=== PATIENT | male | born 1950 | race American Indian/Alaskan Native ===

== ENCOUNTER 2019-12-03 20:49 | Emergency (ER) | payer SELFPAY ==
[2019-12-04 04:34] LABS: Basophils % (Auto) 0.3 % (0.0-1.8); Eosinophils % (Auto) 0.3 % (0.0-4.3); Hematocrit 44.8 % (35.5-45.6); Hemoglobin 14.7 gm/dl (11.8-15.2); Lymphocytes # (Auto) 2.5 K/mm3 (1.2-5.4); Lymphocytes % (Auto) 27.7 % (13.4-35.0); Mean Corpuscular HGB Conc 33 % (32-34); Mean Corpuscular Volume 87 fl (84-94); Monocytes # (Auto) 0.6 K/mm3 (0.0-0.8); Monocytes % (Auto) 6.3 % (0.0-7.3); Red Blood Count 5.14 M/mm3 (3.65-5.03); Red Cell Distribution Width 13.9 % (13.2-15.2)
[2019-12-04 04:40] LABS: BUN/Creatinine Ratio 11; Blood Urea Nitrogen 11 mg/dL (9-20); Calcium 10.5 mg/dL (8.4-10.2); Hemolysis Index 9
[2019-12-04 04:41] LABS: Platelet Count 191 K/mm3 (140-440)
[2019-12-04] MEDS ORDERED: SODIUM CHLORIDE 0.9% 1000 ML 1,000 ML IV ONE (07:49)
[2019-12-04] MEDS ORDERED: DIPHtheria,PERTUSSIS(ACELL),TETANUS VACCINE/PF 0.5 ML VIAL IM ONE (08:01)
--- NOTE | 2019-12-04 08:39 | XRay Report ---
LUMBAR SPINE 4 VIEWS INDICATION / CLINICAL INFORMATION: fall w/ etoh. COMPARISON: None available. FINDINGS: Mild degenerative changes. No fracture or subluxation. Signer Name: Jorge Alberto Christianson MD Signed: 12/04/2019 8:35 AM Workstation Name: [id number]
--- NOTE | 2019-12-04 08:43 | XRay Report ---
THORACIC SPINE 4 VIEWS INDICATION / CLINICAL INFORMATION: fall with etoh. COMPARISON: None available. FINDINGS: Mild degenerative changes. T1 is not optimally seen on the lateral views but is normal on AP views. I see no fracture, subluxation or other acute abnormality. Signer Name: oJrge Alberto Christianson MD Signed: 12/04/2019 8:39 AM Workstation Name: [id number]
--- NOTE | 2019-12-04 08:53 | Emergency Department Report ---
ED Alcohol HPI - General Chief Complaint: Alcohol Stated Complaint: ETOH Time Seen by Provider: 12/04/19 07:40 Source: patient Mode of arrival: Ambulatory Limitations: No Limitations - History of Present Illness Initial Comments: This is a 69-year-old male brought by EMS nontoxic, well nourished in appearance, no acute signs of distress presents to the ED with c/o of alcohol intoxication that occurred last night. Patient that he had several alcoholic drinks and smoked marijuana last night. Patient does present with some facial abrasions with headache and neck pain. Patient that he believes he tripped and fell. Patient otherwise denies any other complaints. Patient is alert and oriented x3. Patient denies loss of consciousness, head trauma, ecchymosis, chest pain, short of breath, blurry vision, fever, chills, stiff neck, decreased range of motion, bladder or bowel instability, diaphoresis, nausea, vomiting, abdominal pain, joint pain or swelling, visual changes, chest wall tenderness, numbness or tingling sensation extremity. Patient agrees to good rectal tone with no bladder overflow. Patient is currently ambulatory with no assistance. Patient denies any allergies or significant past medical history. Patient denies any suicidal or homicidal ideation. Denies any visual auditory hallucinations. MD Complaint: alcohol intoxication Time Since Last Drink: 1 -: days(s) Associated Symptoms: denies other symptoms. denies: nausea, vomiting, syncope, seizure, diaphoresis, tremors, abdominal pain, hematemesis, melena, depression, suicidality Treatments Prior to Arrival: none - Related Data Allergies Allergy/AdvReac Type Severity Reaction Status Date / Time No Known Allergies Allergy Unverified 12/04/19 03:26 ED Review of Systems ROS: Stated complaint: ETOH Other details as noted in HPI Constitutional: denies: chills, fever Eyes: denies: eye pain, eye discharge, vision change ENT: denies: ear pain, throat pain Respiratory: denies: cough, shortness of breath, wheezing Cardiovascular: denies: chest pain, palpitations Endocrine: no symptoms reported Gastrointestinal: denies: abdominal pain, nausea, diarrhea Genitourinary: denies: urgency, dysuria Musculoskeletal: denies: back pain, joint swelling, arthralgia Skin: denies: rash, lesions Neurological: headache. denies: weakness, paresthesias Psychiatric: denies: anxiety, depression Hematological/Lymphatic: denies: easy bleeding, easy bruising ED Past Medical Hx - Past Medical History Previous Medical History?: Yes Hx Hypertension: Yes - Surgical History Past Surgical History?: No - Social History Smoking Status: Current Every Day Smoker Substance Use Type: Alcohol, Marijuana ED Physical Exam - General Limitations: No Limitations General appearance: alert, in no apparent distress - Head Head exam: Present: atraumatic, normocephalic - Expanded Head Exam Expanded Head exam: Present: abrasion 1 - abrasion noted here - Eye Eye exam: Present: normal appearance, PERRL, EOMI - Neck Neck exam: Present: normal inspection, full ROM. Absent: tenderness, meningismus, lymphadenopathy - Respiratory Respiratory exam: Present: normal lung sounds bilaterally. Absent: respiratory distress, wheezes, rales, rhonchi, stridor, chest wall tenderness, accessory muscle use, decreased breath sounds, prolonged expiratory - Cardiovascular Cardiovascular Exam: Present: regular rate, normal rhythm, normal heart sounds. Absent: tachycardia, irregular rhythm, systolic murmur, diastolic murmur, rubs, gallop - GI/Abdominal GI/Abdominal exam: Present: soft, normal bowel sounds. Absent: distended, tenderness, guarding, rebound, rigid, diminished bowel sounds - Extremities Exam Extremities exam: Present: normal inspection, full ROM, normal capillary refill. Absent: tenderness, joint swelling - Back Exam Back exam: Present: normal inspection, full ROM, paraspinal tenderness (cervical and thoacic paraspinal area). Absent: tenderness, CVA tenderness (R), CVA tende rness (L), muscle spasm, vertebral tenderness, rash noted - Expanded Back Exam Expanded Back exam: Absent: saddle anesthesia Back exam: Negative Straight Leg Raising: Left, Right - Neurological Exam Neurological exam: Present: alert, oriented X3, normal gait - Expanded Neurological Exam Expanded Patient oriented to: Present: person, place, time Cranial nerves: EOM's Intact: Normal, Facial Sensation: Normal Cerebellar function: Finger to Nose: Normal Upper motor neuron: Pronator Drift: Normal, Sensory Extinction: Normal Motor strength exam: GREG: 5, LUE: 5, RLE: 5, LLE: 5 Best Eye Response (Adwoa): (4) open spontaneously Best Motor Response (Edwards): (6) obeys commands Best Verbal Response (Edwards): (5) oriented Edwards Total: 15 - Psychiatric Psychiatric exam: Present: normal affect, normal mood - Skin Skin exam: Present: warm, dry, intact, normal color. Absent: rash ED Course Vital Signs 12/03/19 21:19 Temperature 97.7 F Pulse Rate 53 L Respiratory 12 Rate Blood Pressure 135/70 O2 Sat by Pulse 97 Oximetry - Reevaluation(s) Reevaluation #1: 12/04/19 08:53 Patient is speaking in full sentences with no signs of distress noted. ED Medical Decision Making - Lab Data Result diagrams: 12/04/19 03:34 12/04/19 03:34 Lab Results 12/04/19 12/04/19 12/04/19 Range/Units 03:34 03:34 03:34 WBC (4.5-11.0) K/mm3 RBC (3.65-5.03) M/mm3 Hgb (11.8-15.2) gm/dl Hct (35.5-45.6) % MCV (84-94) fl MCH (28-32) pg MCHC (32-34) % RDW (13.2-15.2) % Plt Count (140-440) K/mm3 Lymph % (Auto) (13.4-35.0) % Barnwell % (Auto) (0.0-7.3) % Eos % (Auto) (0.0-4.3) % Baso % (Auto) (0.0-1.8) % Lymph # (Auto) (1.2-5.4) K/mm3 Barnwell # (Auto) (0.0-0.8) K/mm3 Eos # (Auto) (0.0-0.4) K/mm3 Baso # (Auto) (0.0-0.1) K/mm3 Seg Neutrophils % (40.0-70.0) % Seg Neutrophils # (1.8-7.7) K/mm3 Sodium 135 L (137-145) mmol/L Potassium 4.6 (3.6-5.0) mmol/L Chloride 91.6 L (98-107) mmol/L Carbon Dioxide 25 (22-30) mmol/L Anion Gap 23 mmol/L BUN 11 (9-20) mg/dL Creatinine 1.0 (0.8-1.3) mg/dL Estimated GFR > 60 ml/min BUN/Creatinine Ratio 11 % Glucose 103 H (75-100) mg/dL Calcium 10.5 H (8.4-10.2) mg/dL Salicylates < 0.3 L (2.8-20.0) mg/dL Acetaminophen 5.0 L (10.0-30.0) ug/mL Plasma/Serum Alcohol (0-0.07) % 12/04/19 12/04/19 12/04/19 Range/Units 03:34 03:34 08:54 WBC 8.9 (4.5-11.0) K/mm3 RBC 5.14 H (3.65-5.03) M/mm3 Hgb 14.7 (11.8-15.2) gm/dl Hct 44.8 (35.5-45.6) % MCV 87 (84-94) fl MCH 29 (28-32) pg MCHC 33 (32-34) % RDW 13.9 (13.2-15.2) % Plt Count 191 (140-440) K/mm3 Lymph % (Auto) 27.7 (13.4-35.0) % Barnwell % (Auto) 6.3 (0.0-7.3) % Eos % (Auto) 0.3 (0.0-4.3) % Baso % (Auto) 0.3 (0.0-1.8) % Lymph # (Auto) 2.5 (1.2-5.4) K/mm3 Barnwell # (Auto) 0.6 (0.0-0.8) K/mm3 Eos # (Auto) 0.0 (0.0-0.4) K/mm3 Baso # (Auto) 0.0 (0.0-0.1) K/mm3 Seg Neutrophils % 65.4 (40.0-70.0) % Seg Neutrophils # 5.8 (1.8-7.7) K/mm3 Sodium (137-145) mmol/L Potassium (3.6-5.0) mmol/L Chloride (98-107) mmol/L Carbon Dioxide (22-30) mmol/L Anion Gap mmol/L BUN (9-20) mg/dL Creatinine (0.8-1.3) mg/dL Estimated GFR ml/min BUN/Creatinine Ratio % Glucose (75-100) mg/dL Calcium (8.4-10.2) mg/dL Salicylates (2.8-20.0) mg/dL Acetaminophen (10.0-30.0) ug/mL Plasma/Serum Alcohol 0.10 H 0.01 (0-0.07) % - Radiology Data Referring Physician: JOSEF MADRID Patient Name: CLARITZA ESCOBEDO Date of : 1950 Sex: Male Report Date: 2019-12-04 Report Status: Finalized [address] [address] XRay Report Signed Patient: CLARITZA ESCOBEDO MR#: [id number] : 1950 Acct:[id number] Age/Sex: 69 / M ADM Date: 12/03/19 Loc: ED Attending Dr: Ordering Physician: JOSEF MADRID NP Date of Service: 12/04/19 Procedure(s): XR spine thoracic 2V Accession Number(s): [id number] cc: JOSEF MADRID NP Fluoro Time In Minutes: THORACIC SPINE 4 VIEWS INDICATION / CLINICAL INFORMATION: fall with etoh. COMPARISON: None available. FINDINGS: Mild degenerative changes. T1 is not optimally seen on the lateral views but is normal on AP views. I see no fracture, subluxation or other acute abnormality. Signer Name: Jorge Alberto Christianson MD Signed: 12/04/2019 8:39 AM Workstation Name: [id number] Transcribed By: TM Dictated By: Jorge Alberto Christianson MD Electronically Authenticated By: Jorge Alberto Christianson MD Signed Date/Time: 12/04/19838 DD/ 7 TD/TT: Referring Physician: JOSEF MADRID Patient Name: CLARITZA ESCOBEDO Date of : 1950 Sex: Male Report Date: 2019-12-04 Report Status: Finalized [address] [address] Cat Scan Report Signed Patient: CLARITZA ESCOBEDO MR#: [id number] : 1950 Acct:[id number] Age/Sex: 69 / M ADM Date: 12/03/19 Loc: ED Attending Dr: Ordering Physician: JOSEF MADRID NP Date of Service: 12/04/19 Procedure(s): CT head/brain wo con Accession Number(s): [id number] cc: JOSEF MADRID NP NONENHANCED CT SCAN OF THE HEAD: INDICATION / CLINICAL INFORMATION: 69 years Male; fall w/ etoh. TECHNIQUE: Routine CT head without contrast. All CT scans at this location are performed using CT dose reduction for ALARA by means of automated exposure control. COMPARISON: None. FINDINGS: BRAIN / INTRACRANIAL CONTENTS: No intracranial sequela from the trauma; no scalp hematoma; no air-fluid level in the visualized portions of the paranasal sinuses. No acute hemorrhage, mass effect, midline shift, hydrocephalus, or acute, large territorial infarct. No chronic infarct or focal atrophy. Normal brain volume and ventricular/sulcal size for age. No significant white matter abnormality. CRANIOCERVICAL JUNCTION: No significant abnormality. ORBITS: No significant abnormality of visualized orbits. SINUSES / MASTOIDS: No significant abnormality of the visualized paranasal sinuses or mastoid air cells. ADDITIONAL FINDINGS: None. IMPRESSION: Normal nonenhanced CT scan of the brain Signer Name: Gabbi Fairchild MD Signed: 12/04/2019 9:05 AM Workstation Name: [id number] Transcribed By: BS Dictated By: Gabbi Land MD Electronically Authenticated By: Gabbi Land MD Signed Date/Time: 12/04/19904 DD/ 9 TD/TT: Referring Physician: JOSEF MADRID Patient Name: CLARITZA ESCOBEDO Date of : 1950 Sex: Male Report Date: 2019-12-04 Report Status: Finalized [address] [address] Cat Scan Report Signed Patient: CLARITZA ESCOBEDO MR#: [id number] : 1950 Acct:[id number] Age/Sex: 69 / M ADM Date: 12/03/19 Loc: ED Attending Dr: Ordering Physician: JOSEF MADRID NP Date of Service: 12/04/19 Procedure(s): CT cervical spine wo con Accession Number(s): [id number] cc: JOSEF MADRID NP Exam: CT cervical spine History: fall w/ etoh; Technique: Contiguous thin cut axial images obtained through the cervical spine. Sagittal and coronal reconstructions performed by the technologist. All CT scans at this location are performed using CT dose reduction for ALARA by means of automated exposure control. Findings: No priors. There is no evidence of fracture or traumatic subluxation. At atlantoaxial joint, minimal (2 to 3 mm) anterolisthesis on the left side and retrolistheses on the right side. Vertebral bodies are normal in height and alignment. Intervertebral disc spaces: At C3-C4 disc level, disc osteophyte com plex is seen towards the right side. Both neuroforamina are narrowed worse on the right side. At C4-C5 disc level, midline disc bulging is seen. Disc space is narrowed at C5-C6, C6-C7 disc levels. Neuroforamina is narrowed at C5-C6 disc level. At C6-C7 disc level, midline disc protrusion is seen. Surrounding soft tissues are grossly normal. Impression: No signs of acute bony trauma to the cervical spine. Signer Name: Gabbi Fairchild MD Signed: 12/04/2019 9:21 AM Workstation Name: [id number] Transcribed By: BS Dictated By: Gabbi Land MD Electronically Authenticated By: Gabbi Land MD Signed Date/Time: 12/04/19920 DD/ 4 TD/TT: Referring Physician: JOSEF MADRID Patient Name: CLARITZA ESCOBEDO Date of : 1950 Sex: Male Report Date: 2019-12-04 Report Status: Finalized [facility] [address] [place] [address] XRay Report Signed Patient: CLARITZA ESCOBEDO MR#: [id number] : 1950 Acct:[id number] Age/Sex: 69 / M ADM Date: 12/03/19 Loc: ED Attending Dr: Ordering Physician: JOSEF MADRID NP Date of Service: 12/04/19 Procedure(s): XR spine lumbosacral 2-3V Accession Number(s): [id number] cc: JOSEF MADRID NP Fluoro Time In Minutes: LUMBAR SPINE 4 VIEWS INDICATION / CLINICAL INFORMATION: fall w/ etoh. COMPARISON: None available. FINDINGS: Mild degenerative changes. No fract ure or subluxation. Signer Name: Jorge Alberto Christianson MD Signed: 12/04/2019 8:35 AM Workstation Name: [id number] Transcribed By: TM Dictated By: Jorge Alberto Christianson MD Electronically Authenticated By: Jorge Alberto Christianson MD Signed Date/Time: 12/04/19834 DD/ 3 TD/TT: - Medical Decision Making 69-year-old male that presents with alcohol intoxication. Patient is stable and was examined by me. Patient is neurologically stable. Patient is notified of the x-ray and CT results with no questions noted by the patient. Patient received resuscitation in the ER. Patient is alert and oriented. Patient has a normal gait. Labs obtained. At this time patient is stable for discharge. Patient is notified to follow-up with a primary care doctor in 3-5 days or if symptoms worsen and continue return to emergency room as soon as possible. At time of discharge, the patient does not seem toxic or ill in appearance. No acute signs of distress noted. Patient agrees to discharge treatment plan of care. No further questions noted by the patient. Critical care attestation.: If time is entered above; I have spent that time in minutes in the direct care of this critically ill patient, excluding procedure time. ED Disposition Clinical Impression: Alcohol intoxication Qualifiers: Complication of substance-induced condition: uncomplicated Qualified Code(s): F10.920 - Alcohol use, unspecified with intoxication, uncomplicated Fall Qualifiers: Encounter type: initial encounter Qualified Code(s): W19.XXXA - Unspecified fall, initial encounter Scalp contusion Qualifiers: Encounter type: initial encounter Qualified Code(s): S00.03XA - Contusion of scalp, initial encounter Low back strain Qualifiers: Encounter type: initial encounter Qualified Code(s): S39.012A - Strain of muscle, fascia and tendon of lower back, initial encounter Cervical strain, acute Qualifiers: Encounter type: initial encounter Qualified Code(s): S16.1XXA - Strain of muscle, fascia and tendon at neck level, initial encounter Disposition: DC-01 TO HOME OR SELFCARE Is pt being admited?: No Does the pt Need Aspirin: No Condition: Stable Instructions: Alcohol Intoxication (ED), Abuse of Alcohol (ED) Additional Instructions: Follow-up with a primary care doctor in 3-5 days or if symptoms worsen and continue return to emergency room as soon as possible. Referrals: PRIMARY CAREMD [Primary Care Provider] - 3-5 Days COREY NANCE MD [Staff Physician] - 3-5 Days
--- NOTE | 2019-12-04 09:09 | Cat Scan Report ---
NONENHANCED CT SCAN OF THE HEAD: INDICATION / CLINICAL INFORMATION: 69 years Male; fall w/ etoh. TECHNIQUE: Routine CT head without contrast. All CT scans at this location are performed using CT dos e reduction for ALARA by means of automated exposure control. COMPARISON: None. FINDINGS: BRAIN / INTRACRANIAL CONTENTS: No intracranial sequela from the trauma; no scalp hematoma; no air-flu id level in the visualized portions of the paranasal sinuses. No acute hemorrhage, mass effect, midline shift, hydrocephalus, or acute, large territorial infarct. No chronic infarct or focal atrophy. Normal brain volume and ventricular/sulcal size for age. No sig nificant white matter abnormality. CRANIOCERVICAL JUNCTION: No significant abnormality. ORBITS: No significant abnormality of visualized orbits. SINUSES / MASTOIDS: No significant abnormality of the visualized paranasal sinuses or mastoid air jewell ls. ADDITIONAL FINDINGS: None. IMPRESSION: Normal nonenhanced CT scan of the brain Signer Name: Gabbi Fairchild MD Signed: 12/04/2019 9:05 AM Workstation Name: [id number]
--- NOTE | 2019-12-04 09:25 | Cat Scan Report ---
Exam: CT cervical spine History: fall w/ etoh; Technique: Contiguous thin cut axial images obtained through the cervical spine. Sagittal and webb l reconstructions performed by the technologist. All CT scans at this location are performed using CT dose reduction for ALARA by means of automated exposure control. Findings: No priors. There is no evidence of fracture or traumatic subluxation. At atlantoaxial joint, minimal (2 to 3 mm) anterolisthesis on the left side and retrolistheses on the right side. Vertebral bodies are normal i n height and alignment. Intervertebral disc spaces: At C3-C4 disc level, disc osteophyte complex is seen towards the right side. Both neuroforamina are n arrowed worse on the right side. At C4-C5 disc level, midline disc bulging is seen. Disc space is narrowed at C5-C6, C6-C7 disc levels. Neuroforamina is narrowed at C5-C6 disc level. At C6-C7 disc level, midline disc protrusion is seen. Surrounding soft tissues are grossly normal. Impression: No signs of acute bony trauma to the cervical spine. Signer Name: Gabbi Fairchild MD Signed: 12/04/2019 9:21 AM Workstation Name: [id number]
[2019-12-04 09:48] VITALS: BP 135/78
== END 2019-12-04 09:48 | disposition home or self-care (01) ==
LOC: ED 20:49
DX: S39.012A Strain of muscle, fascia and tendon of lower back, initial encounter (principal); S16.1XXA Strain of muscle, fascia and tendon at neck level, initial encounter; S00.03XA Contusion of scalp, initial encounter; F10.920 Alcohol use, unspecified with intoxication, uncomplicated; W19.XXXA Unspecified fall, initial encounter; Y93.89 Activity, other specified; Y92.89 Other specified places as the place of occurrence of the external cause; Y99.8 Other external cause status
CPT/HCPCS: 36415; 70450; 72070; 72100; 72125; 80048; 85025; 90471; 90715; 96360; 99284; J7030; 80320; G0480